=== PATIENT | female | born 2000 | race Caucasian/White ===

== ENCOUNTER 2021-04-07 12:39 | Emergency (ER) | payer OTHER ==
[~2021-04-07] VITALS: Ht 162.6 cm; Wt 56.7 kg
[2021-04-07] MEDS ORDERED: ONDA4ODT MM (13:19)
== END 2021-04-07 13:25 | disposition home or self-care (01) ==
LOC: ER 12:39
DX: O21.9 Vomiting of pregnancy, unspecified (principal); Z3A.17 17 weeks gestation of pregnancy
CPT/HCPCS: 99283

== ENCOUNTER → 2021-12-19 | Outpatient (CLI) | payer OTHER ==
[~2021-12-19] MED LIST: ONDA4ODT MM
[2021-12-19 15:14] LABS: Source, Urine Voided
[2021-12-19 17:13] LABS: U Amphetamine Screen Not Detected; U Barbituate Screen Not Detected; U Benzodiazapine Screen Not Detected; U Buprenorphine Screen Not Detected; U Cannabinoids Screen Not Detected; U Cocaine Screen Not Detected; U Methadone Screen Not Detected; U Methamphetamine Screen Not Detected; U Opiates Screen Not Detected; U Oxycodone Screen Not Detected; U Phencyclidine Screen Not Detected; U Propoxyphene Screen Not Detected
[2021-12-19 17:49] LABS: Bacteria Many /hpf; Calcium Oxalate Crystals Many /hpf; Mucus Mod (0-Heavy); Squamous Epithelial Cells Many /hpf (Few); White Blood Cells, Urine 25-50 /hpf (0-5)
== END | disposition home or self-care (01) ==
LOC: LAB SHORT 13:36
PROVIDERS: Obstetrics & Gynecology
DX: Z34.82 Encounter for supervision of other normal pregnancy, second trimester (principal)
CPT/HCPCS: 81015; 87086

== ENCOUNTER → 2021-12-25 | Outpatient (CLI) | payer OTHER ==
[2021-12-27 02:08] LABS: CHLAMYDIA TRACHOMATIS, NAA Negative (Negative)
== END | disposition home or self-care (01) ==
LOC: LAB SHORT 16:45 → LAB 16:45
PROVIDERS: Obstetrics & Gynecology
DX: Z11.3 Encounter for screening for infections with a predominantly sexual mode of transmission (principal)
CPT/HCPCS: 87491; 87591

== ENCOUNTER → 2022-02-27 | Outpatient (CLI) | payer OTHER | END | disposition home or self-care (01) | LOC: LAB 14:00 → LAB SHORT 14:00 | PROVIDERS: Advanced Practice Midwife | DX: Z09 Encounter for follow-up examination after completed treatment for conditions other than malignant neoplasm (principal); Z87.59 Personal history of other complications of pregnancy, childbirth and the puerperium | CPT/HCPCS: 81050; 84156 ==

== ENCOUNTER 2022-04-17 09:49 | Inpatient (IN) | payer OTHER ==
[~2022-04-17] VITALS: Ht 162.6 cm; Wt 56.0 kg
[2022-04-17 11:39] LABS: BASOPHILS ABSOLUTE AUTO 0.03 K/mm3 (0.00-0.23); BASOPHILS PERCENT AUTO 0 % (0-2); EOSINOPHILS ABSOLUTE AUTO 0.04 K/mm3 (0.00-0.68); EOSINOPHILS PERCENT AUTO 0 % (0-6); Hematocrit 27.9 % (33.0-51.0); Hemoglobin 8.2 g/dL (11.5-16.0); IMMATURE GRAN ABSOLUTE AUTO 0.07 K/mm3 (0.00-0.10); IMMATURE GRAN PERCENT AUTO 1 % (0-1); LYMPHOCYTES ABSOLUTE AUTO 1.78 K/mm3 (0.84-5.20); LYMPHOCYTES PERCENT AUTO 19 % (21-46); MONOCYTES ABSOLUTE AUTO 0.66 K/mm3 (0.16-1.47); MONOCYTES PERCENT AUTO 7 % (4-13); Mean Corpuscular HGB Conc 29.4 g/dL (31.5-36.5); Mean Corpuscular Volume 72 fL (80-100); NEUTROPHILS ABSOLUTE AUTO 6.79 K/mm3 (1.96-9.15); NEUTROPHILS PERCENT AUTO 73 % (41-73); Platelet Count 238 K/mm3 (150-400); RDW Coefficient Variation 14.7 % (11.7-14.2); RDW Standard Deviation 37.7 fL (35.1-46.3); White Blood Cell Count 9.37 K/mm3 (4.00-11.30)
--- NOTE | 2022-04-17 13:10 | NUR ---
04/17/22 1310 DonavonRoxann P VIABLE FEMALE BORN 1252; APGARS 8/7; WT 5LB 0OZ; LENGTH 17.25IN; HEAD 12.75; CHEST 11.75. CORD SEGMENT SENT W/VIRAJ, RT; CORD BLOOD WITH NAVJOT FERNANDEZ.
[2022-04-17 13:15] LABS: PCO2 Cord - Arterial 52.6 mmHg (40-50); PO2 Cord - Arterial 15.2 mmHg (16-20); pH Cord - Arterial 7.25 (7.28-7.35)
[2022-04-17 13:17] LABS: PCO2 Cord - Venous 39.3 mmHg (40-50); PO2 Cord - Venous 33.2 mmHg (28-32); pH Umbilical Cord - Venous 7.34 (7.26-7.35)
[2022-04-18 05:22] LABS: BASOPHILS ABSOLUTE AUTO 0.03 K/mm3 (0.00-0.23); BASOPHILS PERCENT AUTO 0 % (0-2); EOSINOPHILS ABSOLUTE AUTO 0.02 K/mm3 (0.00-0.68); EOSINOPHILS PERCENT AUTO 0 % (0-6); Hematocrit 24.3 % (33.0-51.0); Hemoglobin 7.4 g/dL (11.5-16.0); IMMATURE GRAN ABSOLUTE AUTO 0.07 K/mm3 (0.00-0.10); IMMATURE GRAN PERCENT AUTO 1 % (0-1); LYMPHOCYTES ABSOLUTE AUTO 2.11 K/mm3 (0.84-5.20); LYMPHOCYTES PERCENT AUTO 16 % (21-46); MONOCYTES ABSOLUTE AUTO 1.09 K/mm3 (0.16-1.47); MONOCYTES PERCENT AUTO 8 % (4-13); Mean Corpuscular HGB 21.8 pg (26.0-34.0); Mean Corpuscular HGB Conc 30.5 g/dL (31.5-36.5); Mean Corpuscular Volume 72 fL (80-100); Mean Platelet Volume 10.5 fL (9.1-12.4); NEUTROPHILS ABSOLUTE AUTO 9.68 K/mm3 (1.96-9.15); NEUTROPHILS PERCENT AUTO 75 % (41-73); Platelet Count 229 K/mm3 (150-400); RDW Standard Deviation 38.7 fL (35.1-46.3); Red Blood Cell Count 3.39 M/mm3 (3.80-5.20)
--- NOTE | 2022-04-18 14:34 | NUR ---
04/18/22 1400 up to gabriella martínez via [facility] to see baby
== END 2022-04-19 12:10 | disposition home or self-care (01) | DRG 786 ==
LOC: OBS 09:49 → BC 09:50 → OBS 11:46 → BC 11:47
PROVIDERS: Obstetrics & Gynecology; ADMIT Obstetrics & Gynecology
PROC: 10D00Z1 Extraction of Products of Conception, Low, Open Approach (ICD-10-PCS; principal; 2022-04-17 12:30)
DX: O32.1XX0 Maternal care for breech presentation, not applicable or unspecified (principal); O60.23X0 Term delivery with preterm labor, third trimester, not applicable or unspecified; D62 Acute posthemorrhagic anemia; O99.03 Anemia complicating the puerperium; Z3A.35 35 weeks gestation of pregnancy; Z37.0 Single live birth; O99.344 Other mental disorders complicating childbirth; F41.8 Other specified anxiety disorders; Z67.10 Type A blood, Rh positive; Z79.899 Other long term (current) drug therapy
CPT/HCPCS: 36415; 59025; 81003; 82803; 85025; 86850; 86900; 86901; 87081; 87150; 99214; A9270; J0290; J0456; J0690; J1885; J2405; J2590; J2765; J3010; J7050; J7120

== ENCOUNTER 2023-03-07 16:56 | Emergency (ER) | payer OTHER ==
[~2023-03-07] VITALS: Ht 154.9 cm; Wt 59.0 kg
[2023-03-07 17:26] VITALS: BP 125/76
[2023-03-07] MEDS ORDERED: ACET325 PO (18:54)
[2023-03-07] MEDS ORDERED: FERSU300 PO (18:54)
== END 2023-03-07 19:16 | disposition home or self-care (01) ==
LOC: ER 16:56
DX: S31.41XA Laceration without foreign body of vagina and vulva, initial encounter (principal); W01.190A Fall on same level from slipping, tripping and stumbling with subsequent striking against furniture, initial encounter
CPT/HCPCS: 12001; 99283-25

== ENCOUNTER → 2024-05-31 | Outpatient (CLI) | payer OTHER ==
[~2024-05-31] MED LIST changes: +ACET325 PO; +FERSU300 PO
[2024-06-02 14:47] LABS: APTIMA MEDIA TYPE Urine; C. TRACHOMATIS BY TMA Negative (Negative); N. GONORRHOEAE BY TMA Negative (Negative); SPECIMEN SOURCE Urine
== END ==
LOC: LAB 12:05 → LAB SHORT 12:05
PROVIDERS: Obstetrics & Gynecology
DX: Z11.3 Encounter for screening for infections with a predominantly sexual mode of transmission (principal)
CPT/HCPCS: 87491; 87591

== ENCOUNTER → 2024-07-21 | Outpatient (CLI) | payer OTHER ==
[2024-07-21 18:31] LABS: Source, Urine Clean Catch
[2024-07-21 19:28] LABS: Appearance, Urine Hazy (Clear); Bilirubin, Urine Neg (Neg); Blood, Urine Neg (Neg); Color, Urine Yellow (P-Yellow); Glucose Qualitative, Urine Neg (Neg); Ketones, Urine Neg (Neg); Leukocyte Esterase, Urine 1+ (Neg); Nitrite, Urine Neg (Neg); Protein, Urine 1+ (Neg); Specific Gravity, Urine 1.015 (1.003-1.022); Urobilinogen, Urine 1+ (Normal)
[2024-07-21 19:36] LABS: Bacteria Many /hpf; Mucus Light (0-Heavy); Squamous Epithelial Cells Few /hpf (Few)
[2024-07-22 07:25] LABS: Bacterial Vaginosis PCR Negative (NEGATIVE); Candida Group, PCR NOT DETECTED (NOT DETECT); Candida glabrata-krusei, PCR NOT DETECTED (NOT DETECT)
== END ==
LOC: LAB SHORT 18:28 → LAB 18:28
PROVIDERS: Obstetrics & Gynecology
DX: N76.0 Acute vaginitis (principal); R30.0 Dysuria
CPT/HCPCS: 81001; 87077; 87086; 87186; 87481; 87661; 87801

== ENCOUNTER → 2024-11-07 | Outpatient (CLI) | payer OTHER | END | disposition home or self-care (01) | LOC: LAB 14:35 → LAB SHORT 14:35 | DX: O09.213 Supervision of pregnancy with history of pre-term labor, third trimester (principal) | CPT/HCPCS: 87081; 87150 ==

== ENCOUNTER 2024-11-23 06:33 | Inpatient (IN) | payer OTHER ==
[~2024-11-23] VITALS: Ht 162.6 cm; Wt 64.0 kg
[2024-11-23] VITALS (28 sets, daily range): BP systolic 96–125; BP diastolic 57–85
[2024-11-23] MEDS ORDERED: Misoprostol 200 MCG Tab PR PRN ×2 (07:35→15:15)
[2024-11-23] MEDS ORDERED: Misoprostol 200 MCG Tab BC PRN (07:35)
[2024-11-23] MEDS ORDERED: Methylergonovine Maleate 0.2MG / ML 1ML Amp IM PRN ×2 (07:35→15:15)
[2024-11-23] MEDS ORDERED: Carboprost Tromethamine 250 MCG/ML 1ML Amp IM PRN ×2 (07:35→15:15)
[2024-11-23] MEDS ORDERED: FentaNYL 2mcg/ml-Bup 0.1% Epd 250 ML EPI PRN (07:35)
[2024-11-23] MEDS ORDERED: Lactated Ringer's 1,000 ML IV PRN ×3 (07:35)
[2024-11-23] MEDS ORDERED: OXYTOCIN/RINGER'S LACTATE 500 ML IV PRN (07:35)
[2024-11-23] MEDS ORDERED: Oxytocin 10 Unit / ML Vial IM PRN (07:35)
[2024-11-23] MEDS ORDERED: FentaNYL Citrate 50 MCG/ML 2 ML Injection IV PRN (07:35)
[2024-11-23] MEDS ORDERED: ePHEDrine Sulfate 50 MG/ML 1ML Injection XX PRN (07:35)
[2024-11-23] MEDS ORDERED: Ondansetron HCl 2 MG / ML 2ML Vial IV PRN (07:40)
[2024-11-23] MEDS ORDERED: Acetaminophen 500 MG Tab PO PRN (07:40)
[2024-11-23] MEDS ORDERED: Calcium Carbonate 500 MG Tab Chew PO PRN (07:40)
[2024-11-23] MEDS ORDERED: Tranexamic Acid 100 ML IV PRN (07:50)
[2024-11-23 08:11] LABS: BASOPHILS ABSOLUTE AUTO 0.03 K/mm3 (0.00-0.23); BASOPHILS PERCENT AUTO 0 % (0-2); EOSINOPHILS ABSOLUTE AUTO 0.04 K/mm3 (0.00-0.68); EOSINOPHILS PERCENT AUTO 1 % (0-6); Hematocrit 31.6 % (33.0-51.0); Hemoglobin 10.6 g/dL (11.5-16.0); IMMATURE GRAN ABSOLUTE AUTO 0.04 K/mm3 (0.00-0.10); IMMATURE GRAN PERCENT AUTO 1 % (0-1); LYMPHOCYTES ABSOLUTE AUTO 2.53 K/mm3 (0.84-5.20); LYMPHOCYTES PERCENT AUTO 30 % (21-46); MONOCYTES ABSOLUTE AUTO 0.71 K/mm3 (0.16-1.47); MONOCYTES PERCENT AUTO 8 % (4-13); Mean Corpuscular HGB 25.9 pg (26.0-34.0); Mean Corpuscular HGB Conc 33.5 g/dL (31.5-36.5); Mean Corpuscular Volume 77 fL (80-100); Mean Platelet Volume 10.5 fL (9.1-12.4); NEUTROPHILS ABSOLUTE AUTO 5.11 K/mm3 (1.96-9.15); NEUTROPHILS PERCENT AUTO 60 % (41-73); Platelet Count 228 K/mm3 (150-400); RDW Coefficient Variation 13.6 % (11.7-14.2); RDW Standard Deviation 37.9 fL (35.1-46.3); Red Blood Cell Count 4.09 M/mm3 (3.80-5.20); White Blood Cell Count 8.46 K/mm3 (4.00-11.30)
[2024-11-23 11:52] LABS: Source, Urine Foley catheter
[2024-11-23 11:59] LABS: Appearance, Urine Clear (Clear); Bilirubin, Urine Neg (Neg); Blood, Urine 1+ (Neg); Color, Urine Yellow (P-Yellow); Glucose Qualitative, Urine Neg (Neg); Ketones, Urine 2+ (Neg); Leukocyte Esterase, Urine Neg (Neg); Nitrite, Urine Neg (Neg); Protein, Urine Neg (Neg); Urobilinogen, Urine NORM (Normal)
[2024-11-23 12:10] LABS: Amorphous Light (0-Heavy); Bacteria Not Seen /hpf; Mucus Light (0-Heavy); Squamous Epithelial Cells Few /hpf (Few); White Blood Cells, Urine 0-2 /hpf (0-5)
[2024-11-23] MEDS ORDERED: Measles/Mumps/Rubella Vaccine 0.5 ML Vial SC PRN (15:15)
[2024-11-23] MEDS ORDERED: OXYTOCIN/RINGER'S LACTATE 500 ML IV SCH (15:15)
[2024-11-23] MEDS ORDERED: Benzocaine Topical Anesthetic Spray 60GM TOP PRN (15:15)
[2024-11-23] MEDS ORDERED: Acetaminophen 325 MG TABLET PO PRN (15:20)
[2024-11-23] MEDS ORDERED: Lactated Ringer's 1,000 ML IV SCH (15:20)
[2024-11-23] MEDS ORDERED: Ketorolac Tromethamine 30mg Vial IV PRN (15:20)
[2024-11-23] MEDS ORDERED: FLU VACC TS2024-25(6MOS UP)/PF 45 MCG/0.5 ML SYRINGE IM PRN (15:20)
[2024-11-23] MEDS ORDERED: Ibuprofen 400 MG Tab PO PRN (15:20)
[2024-11-23] MEDS ORDERED: Witch Hazel/Glycerin PADS TOP PRN (15:20)
[2024-11-23] MEDS ORDERED: Docusate Sodium 100 MG Cap PO PRN (15:20)
[2024-11-23] MEDS ORDERED: Rho(D) Immune Globulin 300 MCG / SYR IM ONE (15:25)
--- NOTE | 2024-11-23 21:22 | NUR ---
NURSE NOTE: PT DECLINES TO TAKE A SHOWER THIS SHIFT
[2024-11-24 00:17] VITALS: BP 109/59
[2024-11-24 05:07] VITALS: BP 107/61
[2024-11-24 08:32] VITALS: BP 101/63
[2024-11-24] MEDS ORDERED: Prenatal Vit/FE Fumarate/FA 1 Tab PO SCH (09:00)
[2024-11-24 11:54] VITALS: BP 121/60
[2024-11-24] MEDS ORDERED: PRENATAL TABLE1 EAC2 PO (16:49)
[2024-11-24 18:18] VITALS: BP 127/81
--- NOTE | 2024-11-24 18:55 | NUR ---
PT DISCHARGE COMPLETED, ALL QUESTIONS ANSWERED. PT, , AND VISITORS WALKED TO THE CAR BY THE NURSE.
== END 2024-11-24 18:35 | disposition home or self-care (01) | DRG 807 ==
LOC: BC 06:33 → OBS 06:33 → BC 06:37 → OBS 07:23 → BC 07:24
PROVIDERS: Advanced Practice Midwife; Obstetrics & Gynecology; ADMIT Obstetrics & Gynecology
PROC: 10E0XZZ Delivery of Products of Conception, External Approach (ICD-10-PCS; principal; 2024-11-23)
PROC: 10907ZC Drainage of Amniotic Fluid, Therapeutic from Products of Conception, Via Natural or Artificial Opening (ICD-10-PCS; 2024-11-23)
PROC: 4A1HXCZ Monitoring of Products of Conception, Cardiac Rate, External Approach (ICD-10-PCS; 2024-11-23)
DX: O34.211 Maternal care for low transverse scar from previous cesarean delivery (principal); Z37.0 Single live birth; O99.344 Other mental disorders complicating childbirth; F41.8 Other specified anxiety disorders; Z3A.38 38 weeks gestation of pregnancy; O71.82 Other specified trauma to perineum and vulva
CPT/HCPCS: 36415; 51702; 59025; 81001; 81003; 85025; 86850; 86900; 86901; 99214; A9270; J1885; J2590; J7120

== ENCOUNTER → 2025-03-18 | Outpatient (CLI) | payer OTHER ==
[~2025-03-18] MED LIST changes: +PRENATAL TABLE1 EAC2 PO
== END ==
LOC: LAB SHORT 15:35 → LAB 15:35
DX: N39.0 Urinary tract infection, site not specified (principal)
CPT/HCPCS: 87077; 87086; 87186

== ENCOUNTER → 2025-06-21 | Outpatient (CLI) | payer OTHER ==
[2025-06-21 15:43] LABS: Source, Urine Clean Catch
[2025-06-21 17:34] LABS: Bilirubin, Urine Neg (Neg); Color, Urine Yellow (P-Yellow); Glucose Qualitative, Urine Neg (Neg); Ketones, Urine Neg (Neg); Leukocyte Esterase, Urine Neg (Neg); Protein, Urine 1+ (Neg); Specific Gravity, Urine 1.010 (1.003-1.022); Urobilinogen, Urine NORM (Normal)
== END ==
LOC: LAB 15:41 → LAB SHORT 15:41
PROVIDERS: Obstetrics & Gynecology
DX: R30.0 Dysuria (principal)
CPT/HCPCS: 81001; 87086

== ENCOUNTER → 2025-06-28 | Outpatient (CLI) | payer OTHER ==
[2025-06-28 18:53] LABS: Bacterial Vaginosis PCR Negative (NEGATIVE); Candida Group, PCR NOT DETECTED (NOT DETECT); Candida glabrata-krusei, PCR NOT DETECTED (NOT DETECT)
== END | disposition home or self-care (01) ==
LOC: LAB SHORT 17:12 → LAB 17:12
PROVIDERS: Family Medicine
DX: N89.8 Other specified noninflammatory disorders of vagina (principal)
CPT/HCPCS: 81515